=== PATIENT | male | born 1975 | race American Indian/Alaskan Native ===

== ENCOUNTER → 2024-01-29 | Emergency (ER) | payer MEDICAID ==
[~2024-01-29] VITALS: Ht 193 cm; Wt 148.6 kg
[2024-01-29 02:47] VITALS: BP 154/118; PULSE 100; RESP 18; TEMP 97.8; O2SAT 98
== END ==
LOC: ER 02:32
DX: S93.401A Sprain of unspecified ligament of right ankle, initial encounter (principal); S96.911A Strain of unspecified muscle and tendon at ankle and foot level, right foot, initial encounter; F15.90 Other stimulant use, unspecified, uncomplicated; X58.XXXA Exposure to other specified factors, initial encounter; Y93.89 Activity, other specified; Y92.89 Other specified places as the place of occurrence of the external cause; Y99.8 Other external cause status
CPT/HCPCS: 99283